=== PATIENT | female | born 1990 | race American Indian/Alaskan Native ===

== ENCOUNTER 2019-09-09 17:48 | Emergency (ER) | payer BC ==
[2019-09-09] MEDS ORDERED: NACL 0.9% 1000 ML 1,000 ML IV ONE (18:14)
--- NOTE | 2019-09-09 18:26 | Emergency Department Report ---
ED Shortness of Breath HPI - General Stated Complaint: SOB Time Seen by Provider: 09/09/19 18:13 - History of Present Illness Initial Comments: This is a 28-year-old female nontoxic, well nourished in appearance, no acute signs of distress presents to the ED with c/o of intermittent shortness of breathe, dizziness, and palpations. Patient stated has past medical history of syncope x years but denies any syncopal episodes today. Stated has followed up with PCP for syncope. Patient denies any chest pain. Patient denies any upper respiratory symptoms. Patient denies any chest pain, back pains, hemoptysis, fever, chills, nausea, vomiting, headache, stiff neck, numbness, tingling, abdominal pain. Denies taking oral contraceptives. Patient denies any recent travels or long car rides. Patient denies any recent surgeries or any sick contacts. Patient denies any drug allergies. Past medical history includes syncope. MD Complaint: shortness of breath, anxiety (dizziness and palpitations) -: This evening Pain Scale: 0 Consistency: intermittent Improves With: nothing Worsens With: nothing Associated Symptoms: denies other symptoms - Related Data Home Medications Medication Instructions Recorded Confirmed Last Taken Terbinafine (Nf) [Lamisil] 250 mg PO QDAY 02/25/14 02/25/14 Unknown Previous Rx's Medication Instructions Recorded Last Taken Type Amoxicillin [Trimox CAP] 500 mg PO Q8H #30 capsule 02/25/14 Unknown Rx Ibuprofen [Motrin] 600 mg PO Q8H PRN #15 tablet 02/25/14 Unknown Rx Cyclobenzaprine [Flexeril 10mg] 10 mg PO TID PRN #14 tablet 11/22/14 Unknown Rx Ibuprofen [Motrin 600 MG tab] 600 mg PO Q8H PRN #15 tablet 11/22/14 Unknown Rx traMADol [Ultram 50 MG tab] 50 mg PO Q4HR PRN #12 tablet 11/22/14 Unknown Rx Allergies Allergy/AdvReac Type Severity Reaction Status Date / Time No Known Allergies Allergy Unverified 02/25/14 18:00 ED Review of Systems ROS: Stated complaint: SOB Other details as noted in HPI Constitutional: denies: chills, fever Eyes: denies: eye pain, eye discharge, vision change ENT: denies: ear pain, throat pain Respiratory: shortness of breath. denies: cough, wheezing Cardiovascular: palpitations. denies: chest pain, dyspnea on exertion, orthopnea, edema, syncope, paroxysmal nocturnal dyspnea Endocrine: no symptoms reported Gastrointestinal: denies: abdominal pain, nausea, diarrhea Genitourinary: denies: urgency, dysuria, discharge Musculoskeletal: denies: back pain, joint swelling, arthralgia Skin: denies: rash, lesions Neurological: other (dizziness). denies: headache, weakness, paresthesias Psychiatric: denies: anxiety, depression Hematological/Lymphatic: denies: easy bleeding, easy bruising ED Past Medical Hx - Past Medical History Additional medical history: cervical radiculopathy - Social History Smoking Status: Never Smoker Substance Use Type: None - Medications Home Medications: Home Medications Medication Instructions Recorded Confirmed Last Taken Type Amoxicillin [Trimox CAP] 500 mg PO Q8H #30 capsule 02/25/14 Unknown Rx Ibuprofen [Motrin] 600 mg PO Q8H PRN #15 tablet 02/25/14 Unknown Rx Terbinafine (Nf) [Lamisil] 250 mg PO QDAY 02/25/14 02/25/14 Unknown History Cyclobenzaprine [Flexeril 10mg] 10 mg PO TID PRN #14 tablet 11/22/14 Unknown Rx Ibuprofen [Motrin 600 MG tab] 600 mg PO Q8H PRN #15 tablet 11/22/14 Unknown Rx traMADol [Ultram 50 MG tab] 50 mg PO Q4HR PRN #12 tablet 11/22/14 Unknown Rx ED Physical Exam - General General appearance: alert, in no apparent distress - Head Head exam: Present: atraumatic, normocephalic - Neck Neck exam: Present: normal inspection, full ROM. Absent: tenderness, meningismus, lymphadenopathy - Respiratory Respiratory exam: Present: normal lung sounds bilaterally. Absent: respiratory distress, wheezes, rales, rhonchi, stridor, chest wall tenderness, accessory muscle use, decreased breath sounds, prolonged expiratory - Cardiovascular Cardiovascular Exam: Present: tachycardia, irregular rhythm, normal heart sounds - GI/Abdominal GI/Abdominal exam: Present: soft - Extremities Exam Extremities exam: Present: normal inspection, full ROM, normal capillary refill. Absent: tenderness - Back Exam Back exam: Present: normal inspection, full ROM. Absent: tenderness, CVA tenderness (R), CVA tenderness (L), muscle spasm, paraspinal tenderness, vertebral tenderness, rash noted - Neurological Exam Neurological exam: Present: alert, oriented X3, normal gait - Psychiatric Psychiatric exam: Present: normal affect, normal mood - Skin Skin exam: Present: warm, dry, intact, normal color. Absent: rash ED Course Vital Signs 09/09/19 09/09/19 09/09/19 18:11 18:15 18:18 Temperature 98.3 F Pulse Rate 113 H 105 H Respiratory 13 18 Rate Blood Pressure 148/74 148/74 Blood Pressure 148/74 [Right] O2 Sat by Pulse 100 100 100 Oximetry 09/09/19 09/09/19 09/09/19 18:31 18:47 19:00 Temperature Pulse Rate 104 H 98 H Respiratory 13 11 L Rate Blood Pressure 148/74 117/83 110/80 Blood Pressure [Right] O2 Sat by Pulse 100 100 100 Oximetry 09/09/19 09/09/19 09/09/19 19:12 19:14 20:51 Temperature Pulse Rate 94 H 83 Respiratory 18 13 15 Rate Blood Pressure Blood Pressure 110/80 127/79 [Right] O2 Sat by Pulse 99 100 100 Oximetry - Reevaluation(s) Reevaluation #1: 09/09/19 18:26 Patient is speaking in full sentences with no signs of distress noted. Reevaluation #2: 09/09/19 21:54 Patient is resting comfortably and stated that all her symptoms of shortness of breath, palpitation and dizziness has subsided and resolved. - Consultations Consultation #1: 09/09/19 18:26 Patient has been consulted with Carlos Avalos about patient history, physical exam, and lagrees to ED plan of care. Consultation #2: 09/09/19 21:54 Patient has been consulted with Carlos Avalos about patient history, physical exam, and labs/EKG and agrees for discharge instructions with follow-up with probation worker. ED Medical Decision Making - Lab Data Result diagrams: 09/09/19 18:19 09/09/19 18:19 - Medical Decision Making This is a 28-year-old female that presents with dizziness, shortness of breath and PVC. Patient is currently stable and was examined by me. Patient was consulted with Dr. Kim, Isabel agrees to the ED plan of care as well as discharge instructions with follow-up. After treatment in ER patient stated symptoms has resolved and subsided. EKG shows PVC. Labs obtained. Vital signs are unremarkable. JOSUE and heart score 0 point. D-dimer negative. Patient was instructed to Follow-up with a probation worker doctor in 2 days or if symptoms worsen and continue return to emergency room as soon as possible. At time of discharge, the patient does not seem toxic or ill in appearance. No acute signs of distress noted. Patient agrees to discharge treatment plan of care. No further questions noted by the patient. - Differential Diagnosis STEMI, PVC, A-fib, PE, COPD, [place] Critical care attestation.: If time is entered above; I have spent that time in minutes in the direct care of this critically ill patient, excluding procedure time. ED Disposition Clinical Impression: PVC (premature ventricular contraction), Shortness of breath, Dizziness, Heart palpitations Disposition: - TO HOME OR SELFCARE Is pt being admited?: No Does the pt Need Aspirin: No Condition: Stable Instructions: Palpitations (ED), Dyspnea (ED) Additional Instructions: Follow-up with a probation worker doctor in 2 days or if symptoms worsen and continue return to emergency room as soon as possible. Referrals: PRIMARY CARE, [Referring] - 3-5 Days MAGDALENO BUSCH MD [Staff Physician] - 3-5 Days TURNER PATEL MD [Staff Physician] - 3-5 Days [facility] [Outside] - 3-5 Days [facility] [Outside] - 3-5 Days Forms: Work/School Release Form(ED)
[2019-09-09 18:48] LABS: Basophils % (Auto) 0.7 % (0.0-1.8); Eosinophils # (Auto) 0.1 K/mm3 (0.0-0.4); Eosinophils % (Auto) 1.7 % (0.0-4.3); Hematocrit 39.1 % (30.3-42.9); Hemoglobin 12.7 gm/dl (10.1-14.3); Lymphocytes # (Auto) 1.6 K/mm3 (1.2-5.4); Lymphocytes % (Auto) 38.7 % (13.4-35.0); Mean Corpuscular HGB Conc 33 % (30-34); Mean Corpuscular Volume 71 fl (79-97); Monocytes # (Auto) 0.3 K/mm3 (0.0-0.8); Platelet Count 259 K/mm3 (140-440); Red Blood Count 5.49 M/mm3 (3.65-5.03)
[2019-09-09 19:26] LABS: Bilirubin,Urine NEG (Negative); Blood,Urine NEG (Negative); Color,Urine Straw (Yellow); Mucus,Urine FEW /HPF; Protein,Urine <15 mg/dL mg/dL (Negative); Urobilinogen,Urine < 2.0 mg/dL (<2.0)
[2019-09-09 19:31] LABS: Amphetamine Screen,Urine PRESUMPTIVE NEGATIVE; Benzodiazepines Screen,Urine PRESUMPTIVE NEGATIVE; Cocaine Screen,Urine PRESUMPTIVE NEGATIVE; Methadone Screen,Urine PRESUMPTIVE NEGATIVE; Opiate Screen,Urine PRESUMPTIVE NEGATIVE
[2019-09-09 19:35] LABS: Alanine Aminotransferase 18 units/L (7-56); Albumin 4.5 g/dL (3.9-5); BUN/Creatinine Ratio 10; Blood Urea Nitrogen 7 mg/dL (7-17); Calcium 9.2 mg/dL (8.4-10.2); Hemolysis Index 4
[2019-09-09 19:45] LABS: Cannabinoid Screen,Urine PRESUMPTIVE POSITIVE
[2019-09-09 20:09] LABS: INR 1.04 (0.87-1.13)
[2019-09-09 20:10] LABS: Partial Thromboplastin Time 29.1 Sec. (24.2-36.6)
--- NOTE | 2019-09-09 20:33 | XRay Report ---
CHEST 2 VIEWS INDICATION / CLINICAL INFORMATION: Chest Pain. COMPARISON: None available. FINDINGS: SUPPORT DEVICES: None. HEART / MEDIASTINUM: No significant abnormality. LUNGS / PLEURA: No significant pulmonary or pleural abnormality. No pneumothorax. ADDITIONAL FINDINGS: No significant additional findings. IMPRESSION: 1. No acute findings. Signer Name: Raymond Willingham MD Signed: 09/09/2019 8:28 PM Workstation Name: [id number]
[2019-09-09] MEDS ORDERED: K-DUR PO ONE (20:35)
[2019-09-09 22:20] VITALS: BP 127/77
== END 2019-09-09 22:20 | disposition home or self-care (01) ==
LOC: ED 17:48
DX: I49.3 Ventricular premature depolarization (principal); R42 Dizziness and giddiness
CPT/HCPCS: 36415; 71046; 80053; 80307; 81001; 83735; 84443; 84484; 84703; 85025; 85379; 85610; 85730; 93005; 93010; 96360; 99285; J7030

== ENCOUNTER 2019-09-28 03:38 | Emergency (ER) | payer BC ==
--- NOTE | 2019-09-28 04:26 | XRay Report ---
CHEST 2 VIEWS INDICATION / CLINICAL INFORMATION: Chest Pain. COMPARISON: 09/09/2019 FINDINGS: SUPPORT DEVICES: None. HEART / MEDIASTINUM: No significant abnormality. LUNGS / PLEURA: No significant pulmonary or pleural abnormality. No pneumothorax. ADDITIONAL FINDINGS: No significant additional findings. IMPRESSION: 1. No acute findings. No interval change. Signer Name: Alice Watts MD Signed: 09/28/2019 4:22 AM Workstation Name: [id number]
--- NOTE | 2019-09-28 05:19 | Emergency Department Report ---
- General Chief complaint: Arrhythmia/Palpitations Stated complaint: FEELING FAINT Time Seen by Provider: 09/28/19 04:38 Source: patient Mode of arrival: Ambulatory Limitations: No Limitations - History of Present Illness Initial comments: Ms. Bhardwaj is a 28 yo female who presents with a sensation of faintness. She has had 4 ED visits in the past month. She has had outpatient cardiology and pulmonology consultations. The sensation of feeling faint occurs when she stretches. The sensation also comes spontaneously. She is understandably frustrated. She has been on a new job for the past 7 months. She has been working floor runner, desk job. Has had palpitations. Has been prescribed potassium, magnesium, and clonazepam. Has a new patient appt with new physician Dr. Arroyo. Has had hx of hypokalemia MD Complaint: generalized weakness -: Sudden Location: generalized Severity: severe Quality: other (feels faint) Consistency: now resolved Improves with: rest, other (eating banana) Worsens with: movement Context: recent illness Associated Symptoms: other (palpitations) - Related Data Home Medications Medication Instructions Recorded Confirmed Last Taken Terbinafine (Nf) [Lamisil] 250 mg PO QDAY 02/25/14 02/25/14 Unknown Previous Rx's Medication Instructions Recorded Last Taken Type Amoxicillin [Trimox CAP] 500 mg PO Q8H #30 capsule 02/25/14 Unknown Rx Ibuprofen [Motrin] 600 mg PO Q8H PRN #15 tablet 02/25/14 Unknown Rx Cyclobenzaprine [Flexeril 10mg] 10 mg PO TID PRN #14 tablet 11/22/14 Unknown Rx Ibuprofen [Motrin 600 MG tab] 600 mg PO Q8H PRN #15 tablet 11/22/14 Unknown Rx traMADol [Ultram 50 MG tab] 50 mg PO Q4HR PRN #12 tablet 11/22/14 Unknown Rx Allergies Allergy/AdvReac Type Severity Reaction Status Date / Time No Known Allergies Allergy Unverified 02/25/14 18:00 ED Review of Systems ROS: Stated complaint: FEELING FAINT Other details as noted in HPI Comment: All other systems reviewed and negative Constitutional: malaise. denies: fever Cardiovascular: palpitations ED Past Medical Hx - Past Medical History Previous Medical History?: Yes Hx Hypertension: No Hx CVA: No Hx Heart Attack/AMI: No Hx Congestive Heart Failure: No Hx Diabetes: No Hx Deep Vein Thrombosis: No Hx Pulmonary Embolism: No Hx GERD: No Hx Liver Disease: No Hx Renal Disease: No Hx Sickle Cell Disease: No Hx Arthritis: No Hx Headaches / Migraines: No Hx Seizures: No Hx Kidney Stones: No Hx Psychiatric Treatment: No Hx Asthma: No Hx COPD: No Hx Tuberculosis: No Hx Dementia: No Hx HIV: No Additional medical history: cervical radiculopathy - Surgical History Hx Coronary Stent: No Hx Open Heart Surgery: No Hx Pacemaker: No Hx Internal Defibrillator: No Hx Cholecystectomy: No Hx Appendectomy: No Hx Breast Surgery: No - Family History Family history: cancer, diabetes, hypertension, vascular disease - Social History Smoking Status: Never Smoker Substance Use Type: None - Medications Home Medications: Home Medications Medication Instructions Recorded Confirmed Last Taken Type Amoxicillin [Trimox CAP] 500 mg PO Q8H #30 capsule 02/25/14 Unknown Rx Ibuprofen [Motrin] 600 mg PO Q8H PRN #15 tablet 02/25/14 Unknown Rx Terbinafine (Nf) [Lamisil] 250 mg PO QDAY 02/25/14 02/25/14 Unknown History Cyclobenzaprine [Flexeril 10mg] 10 mg PO TID PRN #14 tablet 11/22/14 Unknown Rx Ibuprofen [Motrin 600 MG tab] 600 mg PO Q8H PRN #15 tablet 11/22/14 Unknown Rx traMADol [Ultram 50 MG tab] 50 mg PO Q4HR PRN #12 tablet 11/22/14 Unknown Rx ED Physical Exam - General Limitations: No Limitations General appearance: alert, in no apparent distress, other (appears healthy appears nontoxic insightful articulate) - Head Head exam: Present: atraumatic, normocephalic - Eye Eye exam: Present: normal appearance - ENT ENT exam: Present: mucous membranes moist - Neck Neck exam: Present: normal inspection, full ROM - Respiratory Respiratory exam: Present: normal lung sounds bilaterally. Absent: respiratory distress, wheezes, rales, rhonchi - Cardiovascular Cardiovascular Exam: Present: regular rate, normal rhythm, normal heart sounds. Absent: systolic murmur, diastolic murmur, rubs, gallop - GI/Abdominal GI/Abdominal exam: Present: soft, normal bowel sounds. Absent: distended, tenderness, guarding, rebound - Extremities Exam Extremities exam: Present: normal inspection - Back Exam Back exam: Present: normal inspection - Neurological Exam Neurological exam: Present: alert, oriented X3 - Psychiatric Psychiatric exam: Present: normal affect, normal mood - Skin Skin exam: Present: warm, dry, intact, normal color. Absent: rash ED Course Vital Signs 09/28/19 03:42 Temperature 98.3 F Pulse Rate 98 H Respiratory 18 Rate Blood Pressure 133/75 O2 Sat by Pulse 100 Oximetry ED Medical Decision Making - EKG Data EKG shows normal: sinus rhythm, axis, intervals, QRS complexes, ST-T waves Rate: normal - Radiology Data Radiology results: report reviewed Radiology impressions chest radiograph no acute process - Medical Decision Making Ms. Bhardwaj has had symptoms near syncope, feeling faint, palpitations. Differential diagnosis includes arrhythmia, POTS, connective-tissue disorder such as SLE, adrenal insufficiency. She'll need further outpatient evaluation. I recommended tilt table test in outpatient setting. Critical care attestation.: If time is entered above; I have spent that time in minutes in the direct care of this critically ill patient, excluding procedure time. ED Disposition Clinical Impression: Faintness, Palpitations Disposition: DC-01 TO HOME OR SELFCARE Is pt being admited?: No Does the pt Need Aspirin: No Condition: Stable Instructions: Near Syncope (ED) Additional Instructions: Please request a tilt table test to evaluation your symptoms. Referrals: STEPHAN ARROYO MD [Staff Physician] - [facility] Forms: Work/School Release Form(ED)
[2019-09-28 06:07] VITALS: BP 120/87
== END 2019-09-28 05:46 | disposition home or self-care (01) ==
LOC: ED 03:38
DX: R55 Syncope and collapse (principal); R00.2 Palpitations; Z98.890 Other specified postprocedural states; Z79.899 Other long term (current) drug therapy
CPT/HCPCS: 71045; 93005; 93010